=== PATIENT | female | born 1995 | race American Indian/Alaskan Native ===

== ENCOUNTER 2019-11-17 16:58 | Emergency (ER) | payer OTHER ==
[~2019-11-17] VITALS: Ht 157.5 cm; Wt 50.8 kg
[~2019-11-17 16:58] MED LIST: PRED20TA PO
[2019-11-17 17:03] VITALS: BP 129/80
[2019-11-17 17:21] LABS: CLARITY,URINE CLEAR (Clear); COLOR,URINE YELLOW (Yellow); GLUCOSE, URINE NEGATIVE (Neg); KETONES,URINE NEGATIVE (Neg); LEUKOCYTE ESTERASE ,URINE NEGATIVE (Neg); NITRITES, URINE NEGATIVE (Neg); OCCULT BLOOD,URINE SMALL (Neg); PROTEIN,URINE NEGATIVE (Neg); UROBILINOGEN,URINE 0.2 E.U/dL (0.2-1.0)
[2019-11-17 17:22] LABS: UA COLLECTION TYPE CLN CATCH MIDSTREAM
[2019-11-17 17:30] LABS: SQUAMOUS EPITHELIAL CELL,UR FEW /LPF (FEW)
[2019-11-17 17:32] LABS: BACTERIA,URINE FEW /HPF (Neg); RBC,URINE 0-2 /HPF (0-2); WBC,URINE 0-4 /HPF (0-4)
[2019-11-17 18:02] LABS: URINE HCG NEGATIVE (NEG)
[2019-11-17] MEDS ORDERED: FLO0.4C PO (19:40)
== END 2019-11-17 19:46 | disposition home or self-care (01) ==
LOC: ER 16:58
DX: R10.12 Left upper quadrant pain (principal); R11.10 Vomiting, unspecified; Z79.899 Other long term (current) drug therapy
CPT/HCPCS: 74176; 81001; 81025; 99284

== ENCOUNTER 2023-06-01 04:12 | Emergency (ER) | payer BC, OTHER ==
[~2023-06-01] VITALS: Ht 157.5 cm; Wt 54.5 kg
[2023-06-01 04:14] VITALS: TEMP 97.3
[2023-06-01] MEDS ORDERED: ketorolac trometh. 30mg/ml inj. IV ONE (04:30)
[2023-06-01] MEDS: ondansetron/PF 4mg/2ml inj IV ONE (05:04)
[2023-06-01] MEDS: ketorolac tromethamine 15mg/ml inj. IV ONE (05:04)
[2023-06-01 05:24] LABS: HEMOGLOBIN 12.6 g/dl (12.0-16.0); MEAN PLATELET VOLUME 6.7 FL (7.4-10.4); RED CELL DISTRIBUTION WIDTH 13.2 % (11.5-14.5)
[2023-06-01 05:26] LABS: BASOPHILS % (AUTO) 0.3 % (0-1); EOSINOPHILS # (AUTO) 0.2 X10'3 (0-0.9); HEMATOCRIT 36.1 % (35.0-45.0); LYMPHOCYTES % (AUTO) 56.1 % (21-51); MEAN CORPUSCULAR HEMOGLOBIN 32.7 PG (27.0-31.0); MEAN CORPUSCULAR HGB CONC 34.9 g/dL (33.0-36.5); MEAN CORPUSCULAR VOLUME 93.6 FL (78-98); MONOCYTES # (AUTO) 0.4 X10'3 (0-0.9); MONOCYTES % (AUTO) 8.2 % (2-12); NEUTROPHILS # (AUTO) 1.7 X10'3 (1.8-7.7); NEUTROPHILS % (AUTO) 32.4 % (42-75); PLATELET COUNT 318 X10'3 (140-440); RED BLOOD COUNT 3.85 X10'6 (4.20-5.60); WHITE BLOOD COUNT 5.3 X10'3 (4.5-11.0)
[2023-06-01 05:39] LABS: ALANINE AMINOTRANSFERASE 41 U/L (12-78); ALBUMIN 3.6 G/DL (3.4-5.0); ALBUMIN/GLOBULIN RATIO 1.2 (1.1-1.5); ALKALINE PHOSPHATASE 63 IU/L (46-116); ANION GAP 11 (8-16); ASPARTATE AMINO TRANSFERASE 22 U/L (10-37); BILIRUBIN,TOTAL 0.7 MG/DL (0.1-1.0); BLOOD UREA NITROGEN 15 MG/DL (7-18); CALCIUM 8.9 MG/DL (8.5-10.1); CHLORIDE 107 MMOL/L (99-107); CREATININE 0.88 MG/DL (0.40-0.90); GLUCOSE 119 MG/DL (70-104); LIPASE 32 U/L (16-77); POTASSIUM 3.5 MMOL/L (3.5-5.1); SODIUM 141 MMOL/L (135-145); TOTAL CARBON DIOXIDE 23.2 MMOL/L (24-32); TOTAL PROTEIN 6.7 G/DL (6.4-8.2); eCRCL 77 ML/MIN; eGFR 78 ML/MIN
[2023-06-01 05:46] LABS: TOTAL CELLS COUNTED 100
[2023-06-01 05:47] LABS: PLATELET ESTIMATE NORMAL
[2023-06-01 05:59] LABS: BILIRUBIN,URINE NEGATIVE (Neg); CLARITY,URINE SLIGHTLY CLOUDY (Clear); COLOR,URINE YELLOW (Yellow); GLUCOSE, URINE NEGATIVE (Neg); KETONES,URINE NEGATIVE (Neg); LEUKOCYTE ESTERASE ,URINE NEGATIVE (Neg); NITRITES, URINE NEGATIVE (Neg); OCCULT BLOOD,URINE MODERATE (Neg); PROTEIN,URINE NEGATIVE (Neg); UROBILINOGEN,URINE 0.2 E.U/dL (0.2-1.0)
[2023-06-01 06:04] LABS: UA COLLECTION TYPE CLN CATCH MIDSTREAM
[2023-06-01 06:07] LABS: HCG SERUM QL NEGATIVE
[2023-06-01 06:08] LABS: RBC,URINE 50-100 /HPF (0-2)
[2023-06-01 06:09] LABS: BACTERIA,URINE 2+ /HPF (Neg); MUCUS STRANDS NONE SEEN /LPF (Neg); SQUAMOUS EPITHELIAL CELL,UR MANY /LPF (FEW)
[2023-06-01] MEDS ORDERED: ONDA4TAB12 PO (06:59)
[2023-06-01] MEDS ORDERED: FLO0.4C PO (06:59)
[2023-06-01] MEDS ORDERED: CEPH-585 PO (06:59)
[2023-06-01] MEDS ORDERED: HYDR-3965 PO (06:59)
[2023-06-01 07:22] VITALS: BP 114/71; PULSE 61; RESP 16; O2SAT 97
== END 2023-06-01 07:24 | disposition home or self-care (01) ==
LOC: ER 04:12
DX: N20.0 Calculus of kidney (principal); Z79.2 Long term (current) use of antibiotics; Z79.899 Other long term (current) drug therapy
CPT/HCPCS: 36415; 74176; 80053; 81001; 83690; 84703; 85007; 85025; 96374; 96375; 99285; J1885; J2405